=== PATIENT | female | born 1985 | race Caucasian/White ===

== ENCOUNTER 2017-08-14 15:55 | Emergency (ER) | payer BC ==
[2017-08-14 15:59] VITALS: BP 120/68; PULSE 72; TEMP 98; BMI 21.6
--- NOTE | 2017-08-14 16:26 | PDOC ---
History of Present Illness - General History Source: Patient Exam Limitations: No Limitations <Yomi Hodge - Last Filed: 08/14/17 16:26> - General History Source: Patient Exam Limitations: No Limitations - History of Present Illness Initial Comments: 08/14/17 16:29 The patient is a 32 year old female, with no significant past medical history, who presents to the emergency department with bilateral eye redness and discharge for approximately 2 days. Yesterday morning, patient reports waking up with erythema, right worse than left, with associated watery and crusting white discharge. Patient reports associated itchiness, but denies any eye pain, photophobia, or changes in vision. As the day went on, patient reports applying warm compresses with no relief. This morning patient reports waking up with increased left eye erythema and white-watery discharge. Patient reports applying eye drops for itchy red eyes. Patient reports cold-like symptoms for several days, for which she was restarted on a Zpack, after having similar symptoms 1 month ago. Patient currently denies any fever, chills, headache, body aches, sore throat, or dizziness. 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 She denies any nausea or vomiting. She denies any recent travel or sick contacts. Patient reports wearing contact lenses but has been wearing her glasses since her symptoms started. Allergies: NKDA Past surgical history: None reported Social History: Non smoker. No ETOH or recreational drug use. <Karen Ortiz - Last Filed: 08/14/17 16:30> - General Chief Complaint: Eye Problem Stated Complaint: eye itching Time Seen by Provider: 08/14/17 15:58 Past History - Past Medical History Anemia: Yes (H/O IRON DEFICIENCY) COPD: No Thyroid Disease: No - Surgical History Appendectomy: Yes - Immunization History Td Vaccination: Yes - Suicide/Smoking/Psychosocial Hx Smoking Status: No Smoking History: Former smoker Have you smoked in the past 12 months: No Number of Cigarettes Smoked Daily: 1 If you are a former smoker, when did you quit?: 5 YRS AGO Information on smoking cessation initiated: No Hx Alcohol Use: Yes Drug/Substance Use Hx: No Substance Use Type: Alcohol Hx Substance Use Treatment: No <Yomi Hodge - Last Filed: 08/14/17 16:26> <Karen Ortiz Last Filed: 08/14/17 16:30> - Past Medical History Allergies/Adverse Reactions: Allergies Allergy/AdvReac Type Severity Reaction Status Date / Time No Known Drug Allergies Allergy Verified 08/14/17 15:56 Home Medications: Ambulatory Orders Lysine 1,000 mg PO DAILY 06/26/16 Norethindrone-E.estradiol-Iron [Lo Loestrin Fe 1-10 Tablet] 1 tab PO DAILY 06/26 Ciprofloxacin 0.3% Eye Drops [Ciloxan 0.3% Eye Drops -] 1 drop OU Q6H PRN #1 bottle 08/14/17 Review of Systems - Review of Systems Able to Perform ROS?: Yes Comments:: 08/14/17 16:29 GENERAL/CONSTITUTIONAL: No fever or chills. No weakness. HEAD, EYES, EARS, NOSE AND THROAT: Yes bilateral eye erythema, itching, and white-watery discharge. No photophobia, eye pain, or changes in vision. No ear pain or discharge. No sore throat. CARDIOVASCULAR: No chest pain or shortness of breath. RESPIRATORY: No cough, wheezing, or hemoptysis. GASTROINTESTINAL: No nausea, vomiting, diarrhea or constipation. GENITOURINARY: No dysuria, frequency, or change in urination. MUSCULOSKELETAL: No joint or muscle swelling or pain. No neck or back pain. SKIN: No rash NEUROLOGIC: No headache, vertigo, loss of consciousness, or change in strength/ sensation. ENDOCRINE: No increased thirst. No abnormal weight change. HEMATOLOGIC/LYMPHATIC: No anemia, easy bleeding, or history of blood clots. ALLERGIC/IMMUNOLOGIC: No hives or skin allergy. <Karen Ortiz - Last Filed: 08/14/17 16:30> *Physical Exam - Vital Signs Last Vital Signs Temp Pulse Resp BP Pulse Ox 98 F 72 17 120/68 100 08/14/17 15:57 08/14/17 15:57 08/14/17 15:57 08/14/17 15:57 08/14/17 15:57 <Yomi Hodge - Last Filed: 08/14/17 16:26> - Vital Signs Last Vital Signs Temp Pulse Resp BP Pulse Ox 98 F 72 17 120/68 100 08/14/17 15:57 08/14/17 15:57 08/14/17 15:57 08/14/17 15:57 08/14/17 15:57 - Physical Exam Comments: 08/14/17 16:30 GENERAL: Awake, alert, and fully oriented, in no acute distress HEAD: No signs of trauma EYES: 2013 OU, no injection, no crusting, no foreign bodies identified. PERRLA, EOMI, sclera anicteric ENT: Auricles normal inspection, hearing grossly normal, nares patent, oropharynx clear without exudates. Moist mucosa NECK: Normal ROM, supple, no lymphadenopathy, JVD, or masses ABDOMEN: Soft, nontender, normoactive bowel sounds. No guarding, no rebound. No masses EXTREMITIES: Normal range of motion, no edema. No clubbing or cyanosis. No cords, erythema, or tenderness NEUROLOGICAL: Cranial nerves II through XII grossly intact. Normal speech, normal gait SKIN: Warm, Dry, normal turgor, no rashes or lesions noted. <OrtizGiomilsy - Last Filed: 08/14/17 16:30> Medical Decision Making - Medical Decision Making 08/14/17 16:26 A portion of this note was documented by scribe services under my direction. I have reviewed the details of the note, within reason, and agree with the documentation with the following case summary and management plan written by me. Patient treated in the ED. Nursing notes are reviewed and incorporated into the medical decision-making. Vital signs reviewed. Vital Signs Temp Pulse Resp BP Pulse Ox 98 F 72 17 120/68 100 08/14/17 15:57 08/14/17 15:57 08/14/17 15:57 08/14/17 15:57 08/14/17 15:57 32-year-old female no medical history presents with itching of the bilateral eyes. Patient reported that the symptoms started with right eye with crusting and injection and itchiness initially that spread to the left eye since yesterday. Reports it was watery discharge. Denies pain in the eyes. Denies any changes in visual acuity. Does report that she does wear contact lens but stopped and started to wear glasses. Patient does work in a school. Denies fevers or chills. She has been developing upper respiratory infection that her doctor given her prescription for azithromycin which she's been taking. Patient's physical exam and history is consistent with viral conjunctivitis. Given that she is a contact lens wearer, we'll prescribe ciprofloxacin drops and have the patient follow-up with her doctor. Good hygiene encouraged. I discussed the physical exam findings, ancillary test results and final diagnoses with the patient. I answered all of the patient's questions. The patient was satisfied with the care received and felt comfortable with the discharge plan and treatment plan. The patient will call their primary care physician within 24 hours to arrange follow-up and will return to the Emergency Department with any new, persistant or worsening symptoms. <Yomi Hodge - Last Filed: 08/14/17 16:26> *DC/Admit/Observation/Transfer - Discharge Dispostion Admit: No <Yomi Hodge - Last Filed: 08/14/17 16:26> - Attestations Scribe Attestion: 08/14/17 16:30 Documentation prepared by Karen Ortiz, acting as biomedical analytical scientist for Yomi Hodge MD. <Karen Ortiz - Last Filed: 08/14/17 16:30> Diagnosis at time of Disposition: Conjunctivitis Qualifiers: Conjunctivitis type: unspecified Laterality: bilateral Qualified Code(s): H10.9 - Unspecified conjunctivitis - Discharge Dispostion Disposition: HOME Condition at time of disposition: Stable - Prescriptions Prescriptions: Ciprofloxacin 0.3% Eye Drops [Ciloxan 0.3% Eye Drops -] 1 drop OU Q6H PRN #1 bottle PRN Reason: Conjunctivitis - Patient Instructions Printed Discharge Instructions: DI for Conjunctivitis Additional Instructions: Please take the ciprofloxacin eye drops (every 6 hours) for 1 week. It may take several days before your symptoms improve. You are contagious, so please wash your hands frequently.
== END 2017-08-14 16:29 | disposition home or self-care (01) ==
LOC: FER 15:55
DX: H10.9 Unspecified conjunctivitis (principal); Z87.891 Personal history of nicotine dependence; Z86.2 Personal history of diseases of the blood and blood-forming organs and certain disorders involving the immune mechanism
CPT/HCPCS: 99281-25